=== PATIENT | female | born 1980 | race Hispanic/Latino ===

== ENCOUNTER 2020-07-12 21:02 | Emergency (ER) | payer OTHER ==
[2020-07-12] MEDS ORDERED: KETOROLAC TROMETHAMINE 30MG/ML ONE (21:52)
[2020-07-12] MEDS ORDERED: HYDROCODONE/ACETAMINOPHEN 5/325 MG TAB ONE (21:52)
== END 2020-07-12 23:25 | disposition home or self-care (01) ==
LOC: EDH 21:02
DX: S13.4XXA Sprain of ligaments of cervical spine, initial encounter (principal); M25.511 Pain in right shoulder; M25.531 Pain in right wrist; J01.80 Other acute sinusitis; R51.9 Headache, unspecified; V49.49XA Driver injured in collision with other motor vehicles in traffic accident, initial encounter; Y93.89 Activity, other specified; Y92.89 Other specified places as the place of occurrence of the external cause; Y99.8 Other external cause status
CPT/HCPCS: 70450; 72125; 73030; 73110; 81025; 96372; 99285; J1885